=== PATIENT | male | born 1985 | race Two or more races ===

== ENCOUNTER 2019-11-27 03:23 | Inpatient (IN) | payer OTHER ==
[~2019-11-27] VITALS: Ht 180.3 cm; Wt 64.0 kg
[2019-11-27 03:33] VITALS: Ht 180.3 cm; Wt 64.0 kg
--- NOTE | 2019-11-27 03:40 | NUR ---
PT. PRESENTS TO TO THE ER C/O LEFT LOWER ABDOMINAL PAIN, 09/03, SHARP, CONSTANT, GRIMACING, GUARDED, STATES "I HAVE DIVERTICULITIS AND I HAD A LOT OF SALSA FOR DINNER." NAUSEA, THREE EPISODES OF VOMITING SINCE 99, PLACED IN BED 5 VIA WHEELCHAIR, AAOX4, IV ACCESS ESTABLISHED, DR. SCHUSTER AT BEDSIDE WITH MSE, NEW ODERS RECEIVED, SAFETY PRECAUTIONS IN PLACE, PT. DENIES ANY OTHER SYMPTOMS, MOTHER AT BEDSIDE, PLACED ON CM, WILL CONTINUE TO MONITOR.
--- NOTE | 2019-11-27 04:13 | NUR ---
LAB AT BEDSIDE
--- NOTE | 2019-11-27 04:20 | NUR ---
TO CT VIA WHEELCHAIR
[2019-11-27 04:32] LABS: CALCIUM 8.2 mg/dL (8.5-10.1); CARBON DIOXIDE 27.4 mmol/L (21-32); CHLORIDE SERUM 101 mmol/L (98-107); CREATININE SERUM 0.8 mg/dL (0.7-1.3); GFR1 > 60 mL/min; GLUCOSE SERUM 101 mg/dL (74-106); POTASSIUM SERUM 3.8 mmol/L (3.5-5.1); SODIUM SERUM 139 mmol/L (136-145)
[2019-11-27 04:36] LABS: ALBUMIN 3.8 g/dL (3.4-5.0); ALKALINE PHOSPHATASE 110 U/L (46-116); ALT/SGPT 46 U/L (16-63); AMYLASE 102 U/L (25-115); AST/SGOT 86 U/L (15-37); BILIRUBIN TOTAL 0.25 mg/dL (0.20-1.00); LIPASE 826 IU/L (73-393); TOTAL PROTEIN, SERUM 7.4 g/dL (6.4-8.2)
--- NOTE | 2019-11-27 04:43 | NUR ---
PROVIDED URINAL, INSTRUCTED PT TO PROVIDE A URINE SAMPLE
[2019-11-27 04:44] LABS: PLATELET COUNT 340 x10^3mcL (130-400); RED CELL DISTRIBUTION WIDTH 19.6 % (11.5-14.5)
--- NOTE | 2019-11-27 04:45 | NUR ---
PT. LAYING IN BED, SLEEPING COMFORTABLY, NO ACUTE DISTRESS NOTED, MOTHER AT BEDSIDE, WILL MONITOR.
[2019-11-27 04:52] LABS: BAND NEUTROPHIL 1 % (0-10); MONOCYTE 4 % (0-7); SEGMENTED NEUTROPHILS 83 % (37-75)
[2019-11-27 04:53] LABS: rbc morphology (normal/abnorm) ABNORMAL (NORMAL); target cell (codocyte) 2+
[2019-11-27 04:54] LABS: PLATELET MORPHOLOGY LARGE PLATELET SEEN
--- NOTE | 2019-11-27 05:03 | NUR ---
PT. C/O PAIN 09/03, STATES "THE PAIN CAME BACK AGAIN." NEW ORDERS RECEIVED FOR DR. SCHUSTER, CARRIED OUT, SEE EMAR, PT. TOLERATED WELL
--- NOTE | 2019-11-27 06:15 | NUR ---
URINE COLLECTED AND DIPPED
--- NOTE | 2019-11-27 06:29 | NUR ---
X RAY AT BEDSIDE
[2019-11-27 07:14] LABS: microscopic required? NO
[2019-11-27 07:29] LABS: urine erythrocyte NEGATIVE (NEGATIVE)
--- NOTE | 2019-11-27 07:40 | NUR ---
GAVE REPORT TO JARVIS MORALES RN WORKING UNDER MOUNIKA RABAGO ON [facility] WHO WILL ASSUME FURTHER CARE OF THIS PATIENT.
--- NOTE | 2019-11-27 08:00 | NUR ---
RECEIVED PT FROM ED VIA [facility]ER ACCOMPANIED BY RN. NICOLE. C/O 09/03 ABDOMINAL PAIN. GIVEN MORPHINE PRN FOR PAIN. RESPIRATIONS U/E ON RA. LUNG SOUNDS CLEAR. NON-TELE. PULSES PALPABLE IN ALL EXTREMITIES. ABD SOFT WITH ACTIVE BOWEL SOUNDS. IV SITE SL TO LFA AND CDI. VSS. FAMILY AT BEDSIDE. BED ON LOWEST POSITION AND CALL LIGHT WITHIN REACH. WILL CONTINUE TO MONITOR.
--- NOTE | 2019-11-27 08:13 | NUR ---
gave pt morphine 2 mg ivp as ordered for c/o abd'l pain at 10/10 pain scale.
[2019-11-27 08:18] LABS: AMPHETAMINE QUAL UR NONE DETECTED (See below)
--- NOTE | 2019-11-27 08:43 | NUR ---
rechecked pain level claims its still the same.informed about pain not being relieved by morphine. ordered toradol.
--- NOTE | 2019-11-27 09:51 | NUR ---
gave pt toradol 30 mg ivp as ordered for unrelieved pain after morphine was given.
[2019-11-27 10:52] VITALS: BP 141/87
--- NOTE | 2019-11-27 11:02 | NUR ---
PT C/O DIARRHEA X4.PAGED .SPOKE TO HIM INFORMED HIM OF PT'S COMPLAINT. PER OK TO GIVE HER LOMOTIL.
[2019-11-27 11:40] VITALS: BP 144/74
[2019-11-27 12:40] LABS: MAGNESIUM 1.7 mg/dL (1.8-2.4); PHOSPHOROUS 3.4 mg/dL (2.5-4.9)
--- NOTE | 2019-11-27 15:54 | NUR ---
I HAVE REVIEWED THE DATA COLLECTION BY [employer] (NAME):LOBITO GUEVARA RN ENTERED ON (DATE/TIME):11/27/19 I CONCUR WITH THE DATA AND ANY EXCEPTIONS OR COMMENTS ARE LISTED BELOW:
[2019-11-27 16:21] VITALS: BP 107/57; BP 129/81
--- NOTE | 2019-11-27 18:50 | NUR ---
NO SIGNIFICANT CHANGE NOTED.WILL ENDORSE TO NEXT SHIFT.
--- NOTE | 2019-11-27 20:00 | NUR ---
PT A/A/O X4. DENIES DIZZINESS AND HEADACHE. BREATH SOUNDS CLEAR. BREATHING EVEN AND UNLABORED ON ROOM AIR. DENIES CHEST PAIN AND PRESSURE. BOWEL SOUNDS ACTIVE. NO C/O N/V AND C/O ABDOMINAL DISCOMFORT. IV INTACT ON THE LEFT FOREARM INFUSING WITH NS AT 200 ML/HR. MADE PT COMFORTABLE. PLACED CALL LIGHT WITH IN REACH. WILL CONTINUE TO MONITOR.
[2019-11-27 20:11] VITALS: BP 134/78
--- NOTE | 2019-11-27 21:10 | NUR ---
PT C/O ABDOMINAL PAIN. GAVE PT MORPHINE IVP. PT TOLERATED IT WELL. WILL CONTINUE TO MONITOR.
--- NOTE | 2019-11-27 22:02 | NUR ---
PT STILL C/O ABDOMINAL PAIN. GAVE PT TORADOL IVP. PT TOLERATED IT WELL. WILL CONTINUE TO MONITOR.
--- NOTE | 2019-11-28 00:34 | NUR ---
PT RESTING WITH EYES CLOSED. NO DISTRESS AND DISCOMFORT NOTED. WILL CONTINUE TO MONITOR.
--- NOTE | 2019-11-28 02:39 | NUR ---
PT C/O ABDOMINAL PAIN. GAVE PT MORPHINE IVP. PT TOLERATED IT WELL. WILL CONTINUE TO MONITOR.
--- NOTE | 2019-11-28 04:20 | NUR ---
MAGNESIUM OF PATIENT 1.7. DR. ARNOLD NOTIFIED. NO NEW ORDER GIVEN. WILL CONTINUE TO MONITOR.
--- NOTE | 2019-11-28 05:01 | NUR ---
PT C/O FEELING ANXIOUS. GAVE PT ATIVAN IVP. PT TOLERATED IT WELL. WILL CONTINUE TO MONITOR.
[2019-11-28 05:08] VITALS: BP 135/61
--- NOTE | 2019-11-28 06:04 | NUR ---
PT RESTING WITH EYES CLOSED. EASILY AROUSABLE WITH VERBAL STIMULI. NO C/O FEELING ANXIOUS AND PAIN ON THE ABDOMEN THUS FAR. IV INTACT AND INFUSING ORDERED. MADE PT COMFORTABLE. WILL ENDORSE TO THE AM NURSE ACCORDINGLY.
[2019-11-28 06:12] LABS: CALCIUM 8.1 mg/dL (8.5-10.1); CARBON DIOXIDE 27.6 mmol/L (21-32); CHLORIDE SERUM 102 mmol/L (98-107); CREATININE SERUM 0.6 mg/dL (0.7-1.3); GFR1 > 60 mL/min; GLUCOSE SERUM 84 mg/dL (74-106); MAGNESIUM 1.7 mg/dL (1.8-2.4); PHOSPHOROUS 3.3 mg/dL (2.5-4.9); POTASSIUM SERUM 3.5 mmol/L (3.5-5.1); SODIUM SERUM 136 mmol/L (136-145)
[2019-11-28 06:24] LABS: LIPASE 1544 IU/L (73-393)
[2019-11-28 07:11] LABS: PLATELET COUNT 302 x10^3mcL (130-400); RED CELL DISTRIBUTION WIDTH 19.3 % (11.5-14.5)
[2019-11-28 07:12] LABS: BASOPHIL % 0 % (0-2)
--- NOTE | 2019-11-28 08:20 | NUR ---
AAO TIMES 4. MED SURG. LUNGS CTA. NO SOB. O2 SAT ON RA 98% BS'S ACTIVE TIMES 4. HORVATH STRONG. IV SITE LFA CDI. COOPERATIVE. C/O ABD PAIN, MEDICATED WITH TORADOL IVP AT 0802. PERIPHERAL PULSES PALPABLE, NO EDEMA.
[2019-11-28 08:47] VITALS: BP 131/79
[2019-11-28 12:11] VITALS: BP 131/79
[2019-11-28 17:04] VITALS: BP 134/78
--- NOTE | 2019-11-28 18:01 | NUR ---
AAO TIMES 4. MED SURG. PATIENT'S MOTHER PRESENT, CONCERNED AND SUPPORTIVE OF HIM. IV SITE CDI. NO SOB. AMBULATORY. NPO, HE SAYS HE IS HUNGRY AND WANTS FOOD, I EXPLAINED WHAT PANCREATITIS IS, AND HOW YOU REST THE PANCREAS IS BY NOT EATING. HE UNDERSTOOD THE TEACHING.
--- NOTE | 2019-11-28 19:06 | NUR ---
RECEIVED REPORT FROM SONDRA RABAGO. WILL RESUME CARE.
--- NOTE | 2019-11-28 19:20 | NUR ---
RECEIVED PT AA0X4, SPEECH CLEAR. PT ABLE TO FOLLOW COMMANDS AND MAKE NEEDS KNOWN. BREATHING E/U. LUNG SOUNDS CTA. ON RA. S1S2 AUSCULTATED. PT STATES NO PAIN AT THIS TIME. NO REDNESS, DRAINAGE, OR SWELLING NOTED TO EENT. CAP REFILL <3 SEC. PULSES PALPABLE. NO EDEMA NOTED. LFA 20G IV SITE WNL, DRESSING CDI WITH NS INFUSING AT 200ML/HR. ABDOMEN SOFT, NONDISTENDED. BS ACTIVE X 4. NO N/V. NPO AT THIS TIME. PT STATES SOME ABDOMINAL TENDERNESS BUT TOLERABLE, PREVIOUSLY MEDICATED WITH PAIN MEDS(REFER TO EMAR). VOIDS FREELY. PT IS AMBULATORY. SKIN INTACT. PT CALM RESTING IN BED AT THIS TIME. BED IN LOW POSITION. CALL LIGHT WITHIN REACH. WILL CONTINUE TO MONITOR.
[2019-11-28 20:40] VITALS: BP 138/70
[2019-11-29 05:42] VITALS: BP 123/70
[2019-11-29 06:18] LABS: PLATELET COUNT 316 x10^3mcL (130-400)
[2019-11-29 06:26] LABS: CALCIUM 8.2 mg/dL (8.5-10.1); CARBON DIOXIDE 23.5 mmol/L (21-32); CHLORIDE SERUM 101 mmol/L (98-107); CREATININE SERUM 0.6 mg/dL (0.7-1.3); GFR1 > 60 mL/min; GLUCOSE SERUM 64 mg/dL (74-106); POTASSIUM SERUM 3.9 mmol/L (3.5-5.1); SODIUM SERUM 135 mmol/L (136-145)
[2019-11-29 06:46] LABS: RED CELL DISTRIBUTION WIDTH 19.2 % (11.5-14.5)
--- NOTE | 2019-11-29 07:45 | NUR ---
RECIEVED REPORT FROM NENA RECINOS. PATIENT CURRENTLY OBSERVED IN BED AND IS AWAKE ALERT AND ORIENTED. NO CURRENTLY REPORT OF PAIN AT THIS TIME. PATIENT CONTINUE TO REMAIN NPO, WILL ASK PROVIDER FOR CURRENTLY ORDER FOR LIPASE AND ASK IN REGARDS TO ADVANCING DIET. IV TO THE LEFT FOREARM INFUSING NS AT 200/HOUR. ALL SAFETY PRECAUTIONS IN PLACE. CALL LIGHT WITHIN REACH AND PATIENT INSTRUCTED TO UTILIZE CALL LIGHT FOR ASSISTANCE. WILL CONTINUE TO MONITOR.
[2019-11-29 08:04] VITALS: BP 121/63
[2019-11-29 11:56] VITALS: BP 121/63
[2019-11-29 12:01] VITALS: BP 155/92
--- NOTE | 2019-11-29 13:40 | NUR ---
DISCHARGE INSTRUCTIONS AND EDUCATION GIVEN TO PATIENT AND MOTHER. PATIENT VERBALIZED UNDERSTANDING. IV CATH REMOVED FROM PATIENT INTACT. ALL QUESTIONS AND CONCERNS ADDRESSED. NO SIGN OF DISTRESSED. PATIENT AND MOTHER ACCOMPANIED TO THE LOBBY BY [employer] [facility] [employer].
== END 2019-11-29 13:40 | disposition home or self-care (01) | DRG 282 ==
LOC: ED 03:23 → MU 05:29
PROVIDERS: Specialist; ADMIT Internal Medicine
DX: K85.20 Alcohol induced acute pancreatitis without necrosis or infection (principal); F10.129 Alcohol abuse with intoxication, unspecified; F17.210 Nicotine dependence, cigarettes, uncomplicated; Y90.0 Blood alcohol level of less than 20 mg/100 ml; Z90.81 Acquired absence of spleen
CPT/HCPCS: G0378; G0480; J1885; J2060; J2270; J2405; J3475; J7030; Q0092

== ENCOUNTER 2020-03-04 17:27 | Emergency (ER) | payer SELFPAY ==
[~2020-03-04] VITALS: Ht 182.9 cm; Wt 68.0 kg
[2020-03-04 17:37] VITALS: Ht 182.9 cm; Wt 68.0 kg
[2020-03-04 18:15] LABS: microscopic required? NO
[2020-03-04 18:24] LABS: UA SPECIFIC GRAVITY 1.025 (1.005-1.035); urine erythrocyte NEGATIVE (NEGATIVE)
[2020-03-04 18:33] LABS: RED CELL DISTRIBUTION WIDTH 16.3 % (11.5-14.5)
[2020-03-04 18:35] LABS: PLATELET COUNT 784 x10^3mcL (130-400)
[2020-03-04 18:48] LABS: CALCIUM 9.4 mg/dL (8.5-10.1); CARBON DIOXIDE 27.6 mmol/L (21-32); CHLORIDE SERUM 102 mmol/L (98-107); CREATININE SERUM 0.7 mg/dL (0.7-1.3); GFR1 > 60 mL/min; GLUCOSE SERUM 90 mg/dL (74-106); POTASSIUM SERUM 3.4 mmol/L (3.5-5.1); SODIUM SERUM 141 mmol/L (136-145)
[2020-03-04 18:53] LABS: BAND NEUTROPHIL 0 % (0-10); BASOPHIL 0 % (0-2); MONOCYTE 8 % (0-7); SEGMENTED NEUTROPHILS 61 % (37-75)
[2020-03-04 18:54] LABS: ALBUMIN 3.8 g/dL (3.4-5.0); ALKALINE PHOSPHATASE 88 U/L (46-116); ALT/SGPT 30 U/L (16-63); AST/SGOT 27 U/L (15-37); BILIRUBIN TOTAL 0.1 mg/dL (0.20-1.00); LIPASE 2061 IU/L (73-393); TOTAL PROTEIN, SERUM 7.5 g/dL (6.4-8.2); rbc morphology (normal/abnorm) NORMAL (NORMAL)
[2020-03-04 20:33] VITALS: BP 117/60
== END 2020-03-04 20:33 | disposition home or self-care (01) ==
LOC: ED 17:27
PROVIDERS: Emergency Medicine
DX: K85.90 Acute pancreatitis without necrosis or infection, unspecified (principal); D47.3 Essential (hemorrhagic) thrombocythemia; Z90.89 Acquired absence of other organs
CPT/HCPCS: J1885; J2270; J2405; J7030

== ENCOUNTER 2020-04-07 12:48 | Inpatient (IN) | payer OTHER ==
[~2020-04-07] VITALS: Ht 180.3 cm; Wt 65.8 kg
[2020-04-07 12:59] VITALS: Ht 180.3 cm; Wt 65.8 kg
[2020-04-07 13:39] LABS: BASOPHIL % 1.7 % (0-2); CALCIUM 8.9 mg/dL (8.5-10.1); CARBON DIOXIDE 25.8 mmol/L (21-32); CHLORIDE SERUM 102 mmol/L (98-107); CREATININE SERUM 0.8 mg/dL (0.7-1.3); GFR1 > 60 mL/min; GLUCOSE SERUM 89 mg/dL (74-106); SODIUM SERUM 140 mmol/L (136-145)
[2020-04-07 13:40] LABS: PLATELET COUNT 447 x10^3mcL (130-400); RED CELL DISTRIBUTION WIDTH 16.1 % (11.5-14.5)
[2020-04-07 13:44] LABS: ALBUMIN 3.9 g/dL (3.4-5.0); ALKALINE PHOSPHATASE 125 U/L (46-116); ALT/SGPT 38 U/L (16-63); AST/SGOT 43 U/L (15-37); BILIRUBIN TOTAL 0.3 mg/dL (0.20-1.00); TOTAL PROTEIN, SERUM 7.6 g/dL (6.4-8.2)
[2020-04-07 13:53] LABS: LIPASE 2547 IU/L (73-393)
[2020-04-07 15:22] LABS: MAGNESIUM 1.7 mg/dL (1.8-2.4); PHOSPHOROUS 3.5 mg/dL (2.5-4.9)
[2020-04-07 15:23] LABS: CHOLESTEROL/HDL RATIO 2.3
[2020-04-07 16:14] VITALS: BP 147/80
[2020-04-07 20:16] VITALS: BP 137/76
[2020-04-08 05:25] VITALS: BP 144/81
[2020-04-08 06:42] LABS: BASOPHIL % 0 % (0-2); PLATELET COUNT 422 x10^3mcL (130-400); RED CELL DISTRIBUTION WIDTH 15.9 % (11.5-14.5)
[2020-04-08 06:55] LABS: CALCIUM 8.5 mg/dL (8.5-10.1); CARBON DIOXIDE 22.6 mmol/L (21-32); CHLORIDE SERUM 100 mmol/L (98-107); CREATININE SERUM 0.7 mg/dL (0.7-1.3); GFR1 > 60 mL/min; GLUCOSE SERUM 76 mg/dL (74-106); POTASSIUM SERUM 3.7 mmol/L (3.5-5.1); SODIUM SERUM 135 mmol/L (136-145)
[2020-04-08 07:23] VITALS: BP 130/79
[2020-04-08 07:52] LABS: LIPASE 2306 IU/L (73-393)
[2020-04-08 12:07] VITALS: BP 144/87
[2020-04-08 15:43] VITALS: BP 128/82
[2020-04-08 20:40] VITALS: BP 130/79
[2020-04-09 05:42] VITALS: BP 123/78
[2020-04-09 07:32] LABS: BASOPHIL % 0.6 % (0-2)
[2020-04-09 07:51] LABS: CALCIUM 8.9 mg/dL (8.5-10.1); CARBON DIOXIDE 31.5 mmol/L (21-32); CHLORIDE SERUM 103 mmol/L (98-107); CREATININE SERUM 0.6 mg/dL (0.7-1.3); GFR1 > 60 mL/min; GLUCOSE SERUM 98 mg/dL (74-106); MAGNESIUM 1.9 mg/dL (1.8-2.4); POTASSIUM SERUM 3.5 mmol/L (3.5-5.1); SODIUM SERUM 139 mmol/L (136-145)
[2020-04-09 07:58] LABS: LIPASE 1777 IU/L (73-393)
[2020-04-09 08:17] LABS: PLATELET COUNT 417 x10^3mcL (130-400); RED CELL DISTRIBUTION WIDTH 15.9 % (11.5-14.5)
[2020-04-09 08:38] VITALS: BP 127/75
[2020-04-09] MEDS ORDERED: THI100 PO (08:42)
[2020-04-09] MEDS ORDERED: FOL1 PO (08:42)
[2020-04-09] MEDS ORDERED: THERA TABLET400 MCG PO (08:42)
[2020-04-09 12:23] VITALS: BP 119/81
[2020-04-09 13:18] VITALS: BP 119/81
== END 2020-04-09 14:56 | disposition home or self-care (01) | DRG 391 ==
LOC: ED 12:48 → MU 14:26
PROVIDERS: Emergency Medicine; ADMIT Family Medicine
DX: K57.92 Diverticulitis of intestine, part unspecified, without perforation or abscess without bleeding (principal); K85.20 Alcohol induced acute pancreatitis without necrosis or infection; F10.129 Alcohol abuse with intoxication, unspecified; Y90.9 Presence of alcohol in blood, level not specified
CPT/HCPCS: G0378; G0480; J1956; J2270; J2405; J3010; J3490; J7030

== ENCOUNTER 2020-04-10 14:55 | Emergency (ER) | payer SELFPAY ==
[~2020-04-10] VITALS: Ht 182.9 cm; Wt 62.1 kg
[~2020-04-10 14:55] MED LIST: FOL1 PO; THERA TABLET400 MCG PO; THI100 PO
[2020-04-10 14:58] VITALS: Ht 182.9 cm; Wt 62.1 kg
[2020-04-10 15:24] VITALS: BP 143/91
== END 2020-04-10 15:24 | disposition home or self-care (01) ==
LOC: ED 14:55
DX: K57.92 Diverticulitis of intestine, part unspecified, without perforation or abscess without bleeding (principal); F17.210 Nicotine dependence, cigarettes, uncomplicated; Z90.89 Acquired absence of other organs
CPT/HCPCS: 99406; J1885

== ENCOUNTER 2020-05-03 22:07 | Emergency (ER) | payer SELFPAY ==
[~2020-05-03] VITALS: Ht 182.9 cm; Wt 62.3 kg
[2020-05-03 22:28] VITALS: Ht 182.9 cm; Wt 62.3 kg
[2020-05-03 23:54] LABS: BASOPHIL % 0.3 % (0-2); PLATELET COUNT 293 x10^3mcL (130-400)
[2020-05-03 23:59] LABS: RED CELL DISTRIBUTION WIDTH 15.5 % (11.5-14.5)
[2020-05-04 00:03] LABS: CALCIUM 8.6 mg/dL (8.5-10.1); CARBON DIOXIDE 28.5 mmol/L (21-32); CHLORIDE SERUM 99 mmol/L (98-107); CREATININE SERUM 0.8 mg/dL (0.7-1.3); GFR1 > 60 mL/min; GLUCOSE SERUM 113 mg/dL (74-106); POTASSIUM SERUM 3.6 mmol/L (3.5-5.1); SODIUM SERUM 137 mmol/L (136-145)
[2020-05-04 00:08] LABS: ALBUMIN 4.3 g/dL (3.4-5.0); ALKALINE PHOSPHATASE 111 U/L (46-116); ALT/SGPT 54 U/L (16-63); AST/SGOT 35 U/L (15-37); BILIRUBIN TOTAL 1.2 mg/dL (0.20-1.00); LIPASE 323 IU/L (73-393); TOTAL PROTEIN, SERUM 7.8 g/dL (6.4-8.2)
[2020-05-04 01:06] VITALS: BP 111/73
== END 2020-05-04 01:06 | disposition home or self-care (01) ==
LOC: ED 22:07
PROVIDERS: Emergency Medicine
DX: R07.89 Other chest pain (principal); R10.12 Left upper quadrant pain; M25.512 Pain in left shoulder
CPT/HCPCS: 36415; J3010

== ENCOUNTER 2020-07-09 07:30 | Emergency (ER) | payer MEDICAID ==
[2020-07-09 07:49] VITALS: Ht 182.9 cm
[2020-07-09 10:02] VITALS: BP 119/84
== END 2020-07-09 10:17 | disposition home or self-care (01) ==
LOC: ED 07:30
DX: S06.0X0A Concussion without loss of consciousness, initial encounter (principal); M54.2 Cervicalgia; R11.0 Nausea; Z87.19 Personal history of other diseases of the digestive system; Y04.2XXA Assault by strike against or bumped into by another person, initial encounter; Y93.89 Activity, other specified; Y92.89 Other specified places as the place of occurrence of the external cause; Y99.8 Other external cause status
CPT/HCPCS: J1885

== ENCOUNTER 2020-07-10 10:05 | Emergency (ER) | payer MEDICAID ==
[~2020-07-10] VITALS: Ht 167.6 cm; Wt 61.7 kg
[2020-07-10 10:11] VITALS: Ht 167.6 cm; Wt 61.7 kg
[2020-07-10 10:52] VITALS: BP 130/89
== END 2020-07-10 10:52 | disposition home or self-care (01) ==
LOC: ED 10:05
DX: F07.81 Postconcussional syndrome (principal)
CPT/HCPCS: J1885

== ENCOUNTER 2020-08-02 14:54 | Emergency (ER) | payer MEDICAID ==
[~2020-08-02] VITALS: Ht 182.9 cm; Wt 68.0 kg
[2020-08-02 14:57] VITALS: Ht 182.9 cm; Wt 68.0 kg
[2020-08-02 16:11] LABS: CALCIUM 8.9 mg/dL (8.5-10.1); CARBON DIOXIDE 30.7 mmol/L (21-32); CHLORIDE SERUM 97 mmol/L (98-107); GFR1 > 60 mL/min; GLUCOSE SERUM 105 mg/dL (74-106); POTASSIUM SERUM 3.2 mmol/L (3.5-5.1); SODIUM SERUM 135 mmol/L (136-145)
[2020-08-02 16:16] LABS: ALKALINE PHOSPHATASE 122 U/L (46-116); ALT/SGPT 24 U/L (16-63); AST/SGOT 34 U/L (15-37); BILIRUBIN TOTAL 0.9 mg/dL (0.20-1.00); LIPASE 864 IU/L (73-393); TOTAL PROTEIN, SERUM 7.9 g/dL (6.4-8.2)
[2020-08-02 16:23] LABS: BASOPHIL % 0.5 % (0-2)
[2020-08-02 16:25] LABS: PLATELET COUNT 412 x10^3mcL (130-400); RED CELL DISTRIBUTION WIDTH 15.3 % (11.5-14.5)
[2020-08-02 17:49] VITALS: BP 140/89
[2020-08-03] MEDS ORDERED: NASAL MIST126 ML (11:44)
== END 2020-08-02 17:49 | disposition home or self-care (01) ==
LOC: ED 14:54
PROVIDERS: Student in an Organized Health Care Education/Training Program
DX: K85.90 Acute pancreatitis without necrosis or infection, unspecified (principal); F17.200 Nicotine dependence, unspecified, uncomplicated; Z98.890 Other specified postprocedural states
CPT/HCPCS: 99406; J1885; J2270; J7030